=== PATIENT | female | born 1950 | race Caucasian/White ===

== ENCOUNTER 2016-12-23 06:32 | Observation (INO) | payer OTHER ==
[~2016-12-23] VITALS: Ht 165.1 cm; Wt 81.6 kg
[~2016-12-23 06:32] MED LIST: ADVIL COLD & S1 EAC1 PO; ALLEGRA ALLERGY60 MG PO; ALLEGRA-D 12 H1 EAC1 PO; CARDIZEM120 MG PO; CELEXA40 MG PO; CITRATE OF MAG296 ML PO; COLACE100 MG PO; ELIQUIS2.5 MG PO; FLECAINIDE ACET50 M1 PO; HYDROCODON-ACE1 EAC7 PO; HYDROCODONE-APA1 TA1 PO; NORCO 5-325 TA1 EACH PO; NORCO PO; PROBIOTIC1 EACH PO; PROVENTIL IH; TOPROL XL25 MG PO; TYLENOL325 MG PO; XANAX 0.5 MG0.5 M1 PO; ZOFRAN ODT4 MG PO
[2016-12-23] MEDS ORDERED: ALLEGRA-D 24 H1 EACH PO (07:07)
[2016-12-23] MEDS ORDERED: CELEXA20 MG PO (07:07)
[2016-12-23] MEDS ORDERED: BYSTOLIC 5 MG5 MG PO (07:07)
[2016-12-23] MEDS ORDERED: IBUPROFEN 200200 M1 PO (07:08)
[2016-12-23] MEDS ORDERED: OMEPRAZOLE 20 M20 MG PO (07:08)
[2016-12-23 07:17] LABS: ABSOLUTE NEUTROPHILS 2.4 thou/uL (1.4-8.2); BASOPHILS 0.8 % (0.0-2.0); EOSINOPHILS 5.5 % (0.0-3.0); HEMATOCRIT 41.7 % (37.0-47.0); HEMOGLOBIN 13.9 gm/dL (12.0-15.0); LYMPHOCYTES 35.4 % (24.0-44.0); MCH 31.4 pg (26.0-34.0); MCHC 33.5 g/dL (28.0-37.0); MCV 93.8 fL (80.0-100.0); MONOCYTES 9.8 % (1.0-8.0); PLATELET COUNT 205 thou/uL (150-400); POLYS 48.5 % (36.0-66.0); RBC 4.44 mil/uL (4.20-5.00); RDW 13.2 % (10.5-14.5); WBC 4.9 thou/uL (4.0-11.0)
[2016-12-23 07:18] LABS: MANUAL DIFF NO
[2016-12-23 07:26] LABS: CALCIUM 8.9 mg/dL (8.5-10.1); CREATININE 0.8 mg/dL (0.6-1.0); POTASSIUM 4.2 mmol/L (3.5-5.1)
[2016-12-23 07:30] LABS: ALBUMIN 3.6 g/dL (3.4-5.0); TOTAL BILIRUBIN 0.5 mg/dL (<0.1-1.0); TOTAL PROTEIN 7.3 g/dL (6.4-8.2)
[2016-12-23 07:31] LABS: APTT 26.4 Seconds (24.5-32.8)
[2016-12-23 07:48] VITALS: BP 125/71
[2016-12-23 13:35] VITALS: BP 91/53
[2016-12-23 14:35] VITALS: BP 102/65
[2016-12-23 16:20] VITALS: BP 100/53
[2016-12-23 21:38] VITALS: BP 98/59
[2016-12-23 23:09] VITALS: BP 93/60
[2016-12-24 03:57] VITALS: BP 94/54
[2016-12-24 07:55] VITALS: BP 98/59
[2016-12-24] MEDS ORDERED: ELIQUIS5 MG PO (08:16)
[2016-12-24 08:27] VITALS: BP 98/59
[2016-12-24 08:30] VITALS: BP 98/59
== END 2016-12-24 09:10 | disposition home or self-care (01) ==
LOC: CATH 06:32 → 2N 14:35
PROVIDERS: Internal Medicine Cardiovascular Disease
DX: I48.91 Unspecified atrial fibrillation (principal); R06.00 Dyspnea, unspecified
CPT/HCPCS: 62110; 62900; 65020; 65040; 65043; 70005

== ENCOUNTER → 2017-12-23 | Outpatient (CLI) | payer OTHER ==
[~2017-12-23] VITALS: Ht 165.1 cm; Wt 81.6 kg
[~2017-12-23] MED LIST changes: +ALLEGRA-D 24 H1 EACH PO; +BYSTOLIC 5 MG5 MG PO; +CELEXA20 MG PO; +CYMBALTA20 MG PO; +ELIQUIS5 MG PO; +IBUPROFEN 200200 M1 PO; +OMEPRAZOLE 20 M20 MG PO
--- NOTE | ~2017-12-23 | EKG ---
[address] [address] ELECTROCARDIOGRAM REPORT Name: KAYA IVEY Room #: [facility]#: [id number] Admission: 12/23/17 Attend Phys: Jose Torres MD Discharge: Date of : 52 Report #: [id number] THIS REPORT FOR: //name// [facility] Test Date: 2017-12-23 Test Time: 09:39:47 Pat Name: KAYA IVEY Department: Room: Gender: F Bed Placement Coordinator: Leander CHANG : 1950 Requested By: Jose Torres Order Number: [id number] MD: Dion Gates Measurements Intervals [place] Rate: 69 P: MT: 278 QRS: 49 QRSD: 131 T: 38 QT: 437 QTc: 469 Interpretive Statements Atrial-paced rhythm IVCD, consider atypical RBBB. Cannot rule out Brugada syndrome Compared to ECG 11/13/2014 18:10:00 repolarization abnormality is more pronounced Electronically Signed On 12-24-2017 7:45:11 CDT by Dion Gates [email or web address] <ELECTRONICALLY SIGNED> By: Dion Gates MD, [facility] 12/24/17 0745 [id number] Dion Gates MD, [facility] /EPI
--- NOTE | ~2017-12-23 | P ---
[facility] [place] [address] PROCEDURE REPORT Name: KAYA IVEY Room #: [facility]#: [id number] Admission: 12/23/17 Attend Phys: Jose Torres MD Discharge: Date of : 52 Report #: [id number] THIS REPORT FOR: //name// CC: Laura Torres PREOPERATIVE DIAGNOSIS: Atrial fibrillation. POSTOPERATIVE DIAGNOSIS: Atrial fibrillation. The patient was brought to the procedure suite in a fasting and nonsedated state. She underwent informed consent and then was sedated by the Anesthesiology service. Once sedated, she underwent a 200 joule synchronized cardioversion with gnosticist of sinus rhythm. There were no complications. CONCLUSION: Successful cardioversion with gnosticist of sinus rhythm. By: [id number] Jose Torres MD /nt
[2017-12-23 07:57] VITALS: BP 114/71
[2017-12-23 08:11] LABS: HEMATOCRIT 42.8 % (37.0-47.0); HEMOGLOBIN 14.7 gm/dL (12.0-15.0); MCH 31.8 pg (26.0-34.0); MCHC 34.4 g/dL (28.0-37.0); MCV 92.3 fL (80.0-100.0); RBC 4.64 mil/uL (4.20-5.00); RDW 13.2 % (10.5-14.5); WBC 5.8 thou/uL (4.0-11.0)
[2017-12-23 08:23] LABS: CREATININE 0.9 mg/dL (0.6-1.0); POTASSIUM 4.2 mmol/L (3.5-5.1)
[2017-12-23 08:24] LABS: APTT 28.7 Seconds (24.5-32.8); PROTIME 10.7 Seconds (9.3-11.4)
[2017-12-23 08:29] LABS: ALBUMIN 3.6 g/dL (3.4-5.0); TOTAL BILIRUBIN 0.7 mg/dL (<0.1-1.0); TOTAL PROTEIN 7.2 g/dL (6.4-8.2)
== END | disposition home or self-care (01) ==
LOC: CATH 06:29
PROVIDERS: Internal Medicine Cardiovascular Disease
DX: I48.91 Unspecified atrial fibrillation (principal); E78.00 Pure hypercholesterolemia, unspecified; F32.9 Major depressive disorder, single episode, unspecified; J45.909 Unspecified asthma, uncomplicated; K21.9 Gastro-esophageal reflux disease without esophagitis; Z90.49 Acquired absence of other specified parts of digestive tract; Z98.890 Other specified postprocedural states; Z79.899 Other long term (current) drug therapy; Z98.0 Intestinal bypass and anastomosis status; Z95.5 Presence of coronary angioplasty implant and graft; Z82.49 Family history of ischemic heart disease and other diseases of the circulatory system; Z79.01 Long term (current) use of anticoagulants
CPT/HCPCS: 62110; 62900

== ENCOUNTER → 2018-04-28 | Outpatient (CLI) | payer OTHER | LOC: NUC 11:03 | DX: R07.9 Chest pain, unspecified (principal) ==

== ENCOUNTER → 2020-03-07 | Outpatient (CLI) | payer OTHER | LOC: SJCVC 09:05 | PROVIDERS: ATTEND Internal Medicine Cardiovascular Disease | DX: R94.31 Abnormal electrocardiogram [ECG] [EKG] (principal); I48.0 Paroxysmal atrial fibrillation; I49.5 Sick sinus syndrome ==

== ENCOUNTER → 2020-09-05 | Outpatient (CLI) | payer OTHER | LOC: SJCVC 08:55 | PROVIDERS: ATTEND Internal Medicine Cardiovascular Disease | DX: R94.31 Abnormal electrocardiogram [ECG] [EKG] (principal); I48.0 Paroxysmal atrial fibrillation; I49.5 Sick sinus syndrome; E78.00 Pure hypercholesterolemia, unspecified; F32.9 Major depressive disorder, single episode, unspecified; Z72.89 Other problems related to lifestyle; Z79.899 Other long term (current) drug therapy; Z95.2 Presence of prosthetic heart valve ==

== ENCOUNTER → 2021-03-06 | Outpatient (CLI) | payer OTHER | LOC: SJCVC 10:48 | PROVIDERS: ATTEND Internal Medicine Cardiovascular Disease | DX: R94.31 Abnormal electrocardiogram [ECG] [EKG] (principal); I48.0 Paroxysmal atrial fibrillation; I49.5 Sick sinus syndrome; F32.9 Major depressive disorder, single episode, unspecified; Z95.0 Presence of cardiac pacemaker; Z79.899 Other long term (current) drug therapy; Z72.89 Other problems related to lifestyle ==